=== PATIENT | female | born 1985 | race Caucasian/White ===

== ENCOUNTER 2017-09-12 11:07 | Emergency (ER) | payer MEDICARE, OTHER ==
[~2017-09-12] VITALS: Ht 175.3 cm; Wt 98.4 kg
[~2017-09-12 11:07] MED LIST: ACYC800 PO; Bactrim Ds Tab1 EACH PO; CEPH500 PO; CIPRO500 MG PO; CLON.5 PO; CODBUTACEC PO; DIAZ10; FAMO40 PO; HYDACE5 PO; IBUP600 PO; IBUP800; IBUP800 PO; Keflex500 MG PO; LEVFLO500 PO; LIDO2L MM; MULVITMINE; MULVITSO PO; NAPR500 PO; Naprosyn500 MG PO; Norco 5-325 Ta1 EACH PO; OXYACE5T PO; PENVK250 PO; PENVK500 PO; PHENY100ER PO; PRENZ; PROACE100 PO; QUET25 PO; QUET300 PO; RXPENVK250 PO; SERT25; SULTRIDS PO; TRAM50 PO; TRAZ100; TRAZ100 PO; Veetids 500500 MG PO
[2017-09-12 11:28] LABS: BASOPHILS ABSOLUTE AUTO 0.04 K/mm3 (0.00-0.23); BASOPHILS PERCENT AUTO 1 % (0-2); EOSINOPHILS ABSOLUTE AUTO 0.08 K/mm3 (0.00-0.68); EOSINOPHILS PERCENT AUTO 2 % (0-6); Hematocrit 40.6 % (33.0-51.0); Hemoglobin 12.8 g/dL (11.5-16.0); IMMATURE GRAN ABSOLUTE AUTO 0.01 K/mm3 (0.00-0.10); IMMATURE GRAN PERCENT AUTO 0 % (0-1); LYMPHOCYTES ABSOLUTE AUTO 1.34 K/mm3 (0.84-5.20); LYMPHOCYTES PERCENT AUTO 32 % (21-46); MONOCYTES ABSOLUTE AUTO 0.39 K/mm3 (0.16-1.47); MONOCYTES PERCENT AUTO 9 % (4-13); Mean Corpuscular HGB Conc 31.5 g/dL (31.5-36.5); Mean Corpuscular Volume 92 fL (80-100); Mean Platelet Volume 10.1 fL (9.1-12.4); NEUTROPHILS ABSOLUTE AUTO 2.31 K/mm3 (1.96-9.15); NEUTROPHILS PERCENT AUTO 55 % (41-73); Platelet Count 214 K/mm3 (150-400); RDW Coefficient Variation 13.9 % (11.7-14.2); RDW Standard Deviation 46.9 fL (35.1-46.3); Red Blood Cell Count 4.42 M/mm3 (3.80-5.20); White Blood Cell Count 4.17 K/mm3 (4.00-11.30)
[2017-09-12 11:55] LABS: Alanine Aminotransfer (ALT/SGP 159 U/L (12-78); Albumin, Blood 3.3 g/dL (3.4-5.0); Albumin/Globulin Ratio 0.7 (0.8-1.8); Alk Phos 46 U/L (50-136); Anion Gap 7 mmol/L (6-16); Aspartate Aminotrans (AST/SGOT 100 U/L (12-37); Bilirubin, Total 0.3 mg/dL (0.1-1.0); Blood Urea Nitrogen 21 mg/dL (8-24); Bun/Creatinine Ratio 26.2 (12.0-20.0); CO2, Blood 23 mmol/L (21-32); Calcium, Blood 8.2 mg/dL (8.5-10.1); Chloride, Blood 109 mmol/L (98-108); Globulin, Blood 4.6 g/dL (2.2-4.0); Glomerular Filtration Rate >60 (60-); Glucose, Blood 84 mg/dL (70-99); Potassium, Blood 4.9 mmol/L (3.5-5.5); Sodium, Blood 139 mmol/L (136-145); Total Protein, Blood 7.9 g/dL (6.4-8.2)
[2017-09-12 12:07] LABS: Source, Urine Clean Catch
[2017-09-12 12:12] LABS: Bilirubin, Urine Neg (Neg); Blood, Urine 1+ (Neg); Glucose Qualitative, Urine Neg (Neg); Ketones, Urine Neg (Neg); Leukocyte Esterase, Urine Neg (Neg); Nitrite, Urine Neg (Neg); Protein, Urine Neg (Neg); Specific Gravity, Urine 1.015 (1.003-1.022); Urobilinogen, Urine NORM (Normal)
[2017-09-12 12:46] LABS: Appearance, Urine Clear (Clear); Color, Urine Yellow (P-Yellow)
[2017-09-12 12:48] LABS: White Blood Cells, Urine Not Seen /hpf (0-5)
[2017-09-12 12:49] LABS: Bacteria Not Seen /hpf; Red Blood Cells, Urine 0-2 /hpf (0-2); Squamous Epithelial Cells Rare /hpf (Few)
== END 2017-09-12 13:31 | disposition home or self-care (01) ==
LOC: ER 11:07
PROVIDERS: Emergency Medicine
DX: R10.9 Unspecified abdominal pain (principal); Z86.73 Personal history of transient ischemic attack (TIA), and cerebral infarction without residual deficits; Z88.5 Allergy status to narcotic agent; Z88.8 Allergy status to other drugs, medicaments and biological substances
CPT/HCPCS: 36415; 80053; 81001; 81025; 85025; 99283

== ENCOUNTER → 2020-02-06 | Outpatient (CLI) | payer MEDICARE, OTHER | END | disposition home or self-care (01) | LOC: LAB 19:01 → LAB SHORT 19:01 | DX: L02.91 Cutaneous abscess, unspecified (principal) | CPT/HCPCS: 87070; 87075; 87077; 87147; 87186; 87205 ==

== ENCOUNTER 2020-08-16 22:24 | Inpatient (IN) | payer MEDICARE, OTHER ==
[~2020-08-16] VITALS: Ht 175.3 cm; Wt 110.0 kg
[2020-08-17 00:12] LABS: White Blood Cell Count 5.25 K/mm3 (4.00-11.30)
[2020-08-17 00:13] LABS: BASOPHILS ABSOLUTE AUTO 0.06 K/mm3 (0.00-0.23); BASOPHILS PERCENT AUTO 1 % (0-2); EOSINOPHILS ABSOLUTE AUTO 0.11 K/mm3 (0.00-0.68); EOSINOPHILS PERCENT AUTO 2 % (0-6); Hematocrit 33.4 % (33.0-51.0); Hemoglobin 10.1 g/dL (11.5-16.0); IMMATURE GRAN ABSOLUTE AUTO 0.01 K/mm3 (0.00-0.10); IMMATURE GRAN PERCENT AUTO 0 % (0-1); LYMPHOCYTES ABSOLUTE AUTO 1.41 K/mm3 (0.84-5.20); LYMPHOCYTES PERCENT AUTO 27 % (21-46); MONOCYTES ABSOLUTE AUTO 0.58 K/mm3 (0.16-1.47); MONOCYTES PERCENT AUTO 11 % (4-13); Mean Corpuscular HGB 23.9 pg (26.0-34.0); Mean Corpuscular HGB Conc 30.2 g/dL (31.5-36.5); Mean Corpuscular Volume 79 fL (80-100); Mean Platelet Volume 9.3 fL (9.1-12.4); NEUTROPHILS ABSOLUTE AUTO 3.08 K/mm3 (1.96-9.15); NEUTROPHILS PERCENT AUTO 59 % (41-73); Platelet Count 329 K/mm3 (150-400); RDW Coefficient Variation 14.2 % (11.7-14.2); RDW Standard Deviation 40.7 fL (35.1-46.3); Red Blood Cell Count 4.23 M/mm3 (3.80-5.20)
[2020-08-17 00:31] LABS: Alanine Aminotransfer (ALT/SGP 56 U/L (12-78); Albumin, Blood 3.1 g/dL (3.4-5.0); Albumin/Globulin Ratio 0.7 (0.8-1.8); Alk Phos 68 U/L (50-136); Anion Gap 4 mmol/L (6-16); Aspartate Aminotrans (AST/SGOT 38 U/L (12-37); Bilirubin, Total 0.5 mg/dL (0.1-1.0); Blood Urea Nitrogen 13 mg/dL (8-24); CO2, Blood 28 mmol/L (21-32); Calcium, Blood 8.3 mg/dL (8.5-10.1); Chloride, Blood 107 mmol/L (98-108); Globulin, Blood 4.7 g/dL (2.2-4.0); Glomerular Filtration Rate >60 (60-); Glucose, Blood 115 mg/dL (70-99); Sodium, Blood 139 mmol/L (136-145); Total Protein, Blood 7.8 g/dL (6.4-8.2)
--- NOTE | 2020-08-17 03:33 | NUR ---
0325 REPORT RECEIVED FROM CHUY LINDQUIST, VIA ER; PT ADMITTED TO ROOM 343 PER CART FROM ER; PT SLIDE FROM CART TO BED PER SELF; PTS RLE RED AND SWOLLEN, WARM TO TOUCH; C/O NUMBNESS AND TINGLING TO LEG.
[2020-08-17 05:15] LABS: BASOPHILS ABSOLUTE AUTO 0.06 K/mm3 (0.00-0.23); BASOPHILS PERCENT AUTO 1 % (0-2); EOSINOPHILS ABSOLUTE AUTO 0.12 K/mm3 (0.00-0.68); EOSINOPHILS PERCENT AUTO 3 % (0-6); Hematocrit 33.6 % (33.0-51.0); Hemoglobin 10.1 g/dL (11.5-16.0); IMMATURE GRAN ABSOLUTE AUTO 0.01 K/mm3 (0.00-0.10); IMMATURE GRAN PERCENT AUTO 0 % (0-1); LYMPHOCYTES ABSOLUTE AUTO 1.45 K/mm3 (0.84-5.20); LYMPHOCYTES PERCENT AUTO 32 % (21-46); MONOCYTES ABSOLUTE AUTO 0.58 K/mm3 (0.16-1.47); MONOCYTES PERCENT AUTO 13 % (4-13); Mean Corpuscular HGB 23.8 pg (26.0-34.0); Mean Corpuscular HGB Conc 30.1 g/dL (31.5-36.5); Mean Corpuscular Volume 79 fL (80-100); NEUTROPHILS ABSOLUTE AUTO 2.32 K/mm3 (1.96-9.15); NEUTROPHILS PERCENT AUTO 51 % (41-73); Platelet Count 312 K/mm3 (150-400); RDW Coefficient Variation 14.3 % (11.7-14.2); RDW Standard Deviation 40.9 fL (35.1-46.3); Red Blood Cell Count 4.24 M/mm3 (3.80-5.20); White Blood Cell Count 4.54 K/mm3 (4.00-11.30)
[2020-08-17 05:42] LABS: Alanine Aminotransfer (ALT/SGP 52 U/L (12-78); Albumin, Blood 2.9 g/dL (3.4-5.0); Albumin/Globulin Ratio 0.6 (0.8-1.8); Alk Phos 64 U/L (50-136); Anion Gap 5 mmol/L (6-16); Aspartate Aminotrans (AST/SGOT 35 U/L (12-37); Bilirubin, Total 1.2 mg/dL (0.1-1.0); Blood Urea Nitrogen 13 mg/dL (8-24); Bun/Creatinine Ratio 14.2 (12.0-20.0); CO2, Blood 27 mmol/L (21-32); Chloride, Blood 107 mmol/L (98-108); Creatinine, Blood 0.92 mg/dL (0.40-1.00); Globulin, Blood 4.5 g/dL (2.2-4.0); Glomerular Filtration Rate >60 (60-); Glucose, Blood 111 mg/dL (70-99); Potassium, Blood 3.9 mmol/L (3.5-5.5); Sodium, Blood 139 mmol/L (136-145); Total Protein, Blood 7.4 g/dL (6.4-8.2)
--- NOTE | 2020-08-17 07:36 | NUR ---
SHIFT SUMMARY: 35 Y/O OBESE FEMALE RESTED COMFORTABLY ALL SHIFT; PT VERY RELUCTANT TO TAKE NARCOTICS DUE PAST HX SUBSTANCE ABUSEP; PT DID CONSENT TO TAKING FENTANYL 25MG IVP X 1 THIS AM FOR PAIN RATED 9/10 WITH RELIEF FELT; PTS RLE ELEVATED TWO PILLOWS WITH LOWER CALF/ANKLE RED AND WARM TO TOUCH; AFEBRILE; BED LOW POSITION WITH CALL LIGHT AT SIDE.
--- NOTE | 2020-08-17 11:37 | NUR ---
Patient is sitting up in bed and eating breakfast. Patient tells me that she is extremely tired and uncomfortable. She says her pain is managed but her leg still graham. She talks being in a rough patch, about her Restorationist lopez and that she will be having an MRI done this day. She discusses the emotional struggle. I normalize patient's experience and provide emotional support and prayer. Patient responds well and shows signs of increased peace. I will continue to remain available to patient and family.
--- NOTE | 2020-08-17 19:13 | NUR ---
PT IS RESTING IN BED AFTER DINNER AND PM MEDICATION ADMIN. PT IV LINE IS RUNNING AND WNL. PT CONT. TO C/O 78 PAIN IN RLE AND HAS BEEN TREATED PER EMAR. PT IS STAND BAY ASSIST, A/O X3, BED IN LOW POSITION AND CALL LIGHT WITHIN REACH. CONTACTED PHARMACY OF RECORD AND WAS TOLD THAT PT PICKED UP A PRESCRIPTION OF OXYCODONE 5MG, Q4H, PRN FOR PAIN, ON 08/16. PT STATES SHE TOOK A COUPLE AND IT DID NOT WORK, SHE ENDED UP HERE THE NEXT DAY AND SHE IS NOT TAKING THEM CURRENTLY.
[2020-08-17 22:16] LABS: Vancomycin, Trough 24.6 ug/mL (5.0-10.0)
--- NOTE | 2020-08-18 02:02 | NUR ---
08/17/201934 PT RESTING COMFORTABLY IN BED WITH RLE ELEVATED TWO PILLOWS; PTS RLE RED AND WARM TO TOUCH; DENIES NEED FOR PAIN MEDS.
--- NOTE | 2020-08-18 04:43 | NUR ---
SHIFT SUMMARY: 35 Y/O OBESE FEMALE RESTED COMFORTABLY ALL SHIFT; PT DENIES NEED FOR PAIN MEDS; PT RLE HAS +2 EDEMA WITH REDNESS AND WARMTH NOTED; PT ABLE AMBULATE BATHROOM AND BACK TO RESTROOM WITH LIMP NOTED WITH AMBULATION; ALERT AND ORIENTED X 4; PT KEEP RLE ELEVATED ON TWO PILLOWS; BED LOW POSITION WITH CALL LIGHT AT SIDE.
[2020-08-18 05:37] LABS: BASOPHILS ABSOLUTE AUTO 0.05 K/mm3 (0.00-0.23); BASOPHILS PERCENT AUTO 1 % (0-2); EOSINOPHILS ABSOLUTE AUTO 0.11 K/mm3 (0.00-0.68); EOSINOPHILS PERCENT AUTO 3 % (0-6); Hematocrit 35.6 % (33.0-51.0); IMMATURE GRAN ABSOLUTE AUTO 0.01 K/mm3 (0.00-0.10); IMMATURE GRAN PERCENT AUTO 0 % (0-1); LYMPHOCYTES PERCENT AUTO 30 % (21-46); MONOCYTES ABSOLUTE AUTO 0.37 K/mm3 (0.16-1.47); MONOCYTES PERCENT AUTO 9 % (4-13); Mean Corpuscular HGB 24.3 pg (26.0-34.0); Mean Corpuscular HGB Conc 30.9 g/dL (31.5-36.5); Mean Corpuscular Volume 79 fL (80-100); Mean Platelet Volume 9.3 fL (9.1-12.4); NEUTROPHILS ABSOLUTE AUTO 2.29 K/mm3 (1.96-9.15); NEUTROPHILS PERCENT AUTO 57 % (41-73); Platelet Count 329 K/mm3 (150-400); RDW Coefficient Variation 14.2 % (11.7-14.2); RDW Standard Deviation 39.9 fL (35.1-46.3); Red Blood Cell Count 4.53 M/mm3 (3.80-5.20); White Blood Cell Count 4.03 K/mm3 (4.00-11.30)
[2020-08-18 06:02] LABS: Albumin, Blood 2.9 g/dL (3.4-5.0); Anion Gap 4 mmol/L (6-16); Blood Urea Nitrogen 10 mg/dL (8-24); Bun/Creatinine Ratio 11.2 (12.0-20.0); CO2, Blood 27 mmol/L (21-32); Calcium, Blood 8.4 mg/dL (8.5-10.1); Chloride, Blood 107 mmol/L (98-108); Glomerular Filtration Rate >60 (60-); Glucose, Blood 93 mg/dL (70-99); Phosphorus, Blood 4.1 mg/dL (2.5-4.9); Potassium, Blood 4.1 mmol/L (3.5-5.5); Sodium, Blood 138 mmol/L (136-145)
[2020-08-18] MEDS ORDERED: ACET325 PO (12:20)
[2020-08-18] MEDS ORDERED: IBUP400 PO (12:20)
[2020-08-18] MEDS ORDERED: LACT PO (12:21)
[2020-08-18] MEDS ORDERED: SULTRIDS PO (12:21)
--- NOTE | 2020-08-18 15:50 | NUR ---
PT WAS DISCHARGED ALERT AND ORIENTED X4, BELONGINGS AT SIDE AND MAKING NO COMPLAINTS OF PAIN AT THIS TIME. PT WAS EDUCATED ON NEW MEDICATIONS NEEDED AND FOLLOW UP APPOINTMENTS NEEDED. PT WAS ABLE TO VERBALIZE UNDERSTANDING.
== END 2020-08-18 14:39 | disposition home or self-care (01) | DRG 603 ==
LOC: ER 22:24 → MEDS 08-17 02:07 → EDBEDREQ 08-17 02:57 → MEDS 08-17 03:24
PROVIDERS: Emergency Medicine; Internal Medicine; ADMIT Internal Medicine
DX: L03.115 Cellulitis of right lower limb (principal); G40.909 Epilepsy, unspecified, not intractable, without status epilepticus; Z86.73 Personal history of transient ischemic attack (TIA), and cerebral infarction without residual deficits; Z86.14 Personal history of Methicillin resistant Staphylococcus aureus infection; Z86.718 Personal history of other venous thrombosis and embolism
CPT/HCPCS: 36415; 73723; 80048; 80053; 80061; 80069; 80202; 83605; 83880; 84550; 85025; 86592; 87040; 87389; 87491; 87591; 93971; 96365; 96366; 96375; 99284-25; A9579; J0690; J1650; J1885; J3010; J3370; J7030; J7050

== ENCOUNTER 2021-04-14 10:01 | Emergency (ER) | payer MEDICARE, OTHER ==
[~2021-04-14] VITALS: Ht 172.7 cm; Wt 104.3 kg
[~2021-04-14 10:01] MED LIST changes: +ACET325 PO; +IBUP400 PO; +LACT PO
[2021-04-14] MEDS ORDERED: DEXT30SU PO (10:31)
== END 2021-04-14 11:04 | disposition home or self-care (01) ==
LOC: ER 10:01
DX: U07.1 COVID-19 (principal); Z88.5 Allergy status to narcotic agent; Z88.8 Allergy status to other drugs, medicaments and biological substances
CPT/HCPCS: 99284

== ENCOUNTER 2021-12-24 17:44 | Emergency (ER) | payer MEDICARE, OTHER ==
[~2021-12-24] VITALS: Ht 172.7 cm; Wt 104.3 kg
[~2021-12-24 17:44] MED LIST changes: +DEXT30SU PO
[2021-12-24 19:50] LABS: BASOPHILS ABSOLUTE AUTO 0.05 K/mm3 (0.00-0.23); BASOPHILS PERCENT AUTO 1 % (0-2); EOSINOPHILS ABSOLUTE AUTO 0.13 K/mm3 (0.00-0.68); EOSINOPHILS PERCENT AUTO 3 % (0-6); Hematocrit 28.9 % (33.0-51.0); IMMATURE GRAN PERCENT AUTO 0 % (0-1); LYMPHOCYTES ABSOLUTE AUTO 1.11 K/mm3 (0.84-5.20); LYMPHOCYTES PERCENT AUTO 28 % (21-46); MONOCYTES ABSOLUTE AUTO 0.51 K/mm3 (0.16-1.47); MONOCYTES PERCENT AUTO 13 % (4-13); Mean Corpuscular HGB 19.9 pg (26.0-34.0); Mean Corpuscular HGB Conc 27.7 g/dL (31.5-36.5); Mean Corpuscular Volume 72 fL (80-100); Mean Platelet Volume 9.9 fL (9.1-12.4); NEUTROPHILS ABSOLUTE AUTO 2.12 K/mm3 (1.96-9.15); NEUTROPHILS PERCENT AUTO 54 % (41-73); Platelet Count 234 K/mm3 (150-400); RDW Coefficient Variation 19.3 % (11.7-14.2); RDW Standard Deviation 49.3 fL (35.1-46.3); Red Blood Cell Count 4.03 M/mm3 (3.80-5.20); White Blood Cell Count 3.92 K/mm3 (4.00-11.30)
[2021-12-24 20:10] LABS: Albumin/Globulin Ratio 0.7 (0.8-1.8); Bilirubin, Total 0.4 mg/dL (0.1-1.0); Bun/Creatinine Ratio 11.9 (12.0-20.0); Calcium, Blood 8.3 mg/dL (8.5-10.1); Creatinine, Blood 0.92 mg/dL (0.40-1.00); Globulin, Blood 4.3 g/dL (2.2-4.0); Potassium, Blood 4.4 mmol/L (3.5-5.5); Total Protein, Blood 7.3 g/dL (6.4-8.2)
[2021-12-25] MEDS ORDERED: Ferrous Sulfat325 MG PO (00:36)
== END 2021-12-25 00:40 | disposition home or self-care (01) ==
LOC: ER 17:44
PROVIDERS: Physician Assistant
DX: D25.9 Leiomyoma of uterus, unspecified (principal); R60.0 Localized edema; D64.9 Anemia, unspecified; Z88.5 Allergy status to narcotic agent
CPT/HCPCS: 71045; 71260; 74177; 80053; 83615; 83880; 84484; 85025; 85379; 93005; 93010; 99285-25; A9270; Q9967

== ENCOUNTER 2023-01-29 06:11 | Inpatient (IN) | payer MEDICARE, OTHER ==
[2023-01-29] VITALS (19 sets, daily range): BP systolic 115–157; BP diastolic 68–95
[~2023-01-29] VITALS: Ht 175.3 cm; Wt 102.3 kg
[~2023-01-29 06:11] MED LIST changes: +Ferrous Sulfat325 MG PO
--- NOTE | 2023-01-29 07:31 | NUR ---
Ambulatory in Day Surgery History, Chart, Medications and Allergies reviewed before start of procedure. Pre-Op teaching done. Pt verbalizes understanding.
[2023-01-29 09:20] LABS: Source, Urine Foley catheter
[2023-01-29 09:25] LABS: Appearance, Urine Clear (Clear); Bilirubin, Urine Neg (Neg); Blood, Urine Neg (Neg); Color, Urine Yellow (P-Yellow); Glucose Qualitative, Urine Neg (Neg); Ketones, Urine Neg (Neg); Leukocyte Esterase, Urine Neg (Neg); Nitrite, Urine Neg (Neg); Protein, Urine Neg (Neg); Urobilinogen, Urine 1+ (Normal)
[2023-01-29 09:42] LABS: U Amphetamine Screen DETECTED; U Barbituate Screen Not Detected; U Benzodiazapine Screen DETECTED; U Buprenorphine Screen Not Detected; U Cannabinoids Screen DETECTED; U Cocaine Screen Not Detected; U Methadone Screen Not Detected; U Methamphetamine Screen DETECTED; U Opiates Screen Not Detected; U Oxycodone Screen Not Detected; U Phencyclidine Screen Not Detected; U Propoxyphene Screen Not Detected
--- NOTE | 2023-01-29 10:09 | NUR ---
01/29/23 Meredith White PT ARRIVED TO ROOM AND IV WAS INFILTRATED TO RIGHT UPPER ARM. DAY SURGERY ATTEMPTED TO PLACE ANOTHER IV WITH ULTRASOUND TO LEFT UPPER ARM WITH NO SUCCESS. ICU KEYMODULE ASSEMBLY MACHINE TENDER PLACED A POWER GLIDE TO LEFT UPPER ARM. PT WAS VERY SOMMULENT WHEN THIS RN VISITED WITH HER IN PRE -OP. SHE WAS RESTING WITH EYES CLOSED, BUT WOULD OPEN THEM TO VERBAL STIMULI AND TOUCH. SHE QUICKLY WOULD CLOSE HER EYES WITH OUT ANY STIMULI. UPON ARRIVAL TO OR SHE WAS ABLE TO MOVE OVER TO OR TABLE WITH OUT ANY ISSUES. SHE CON'T TO BECOME MORE SOMMULANT T/O HER TIME FROM ARRIVAL TO OR TO TIME OF SEDATION. SHE WAS ALWAYS RESPONSIVE TO REPEATED VERBAL STIMULI AND PHYSICAL STIMULI. SHE DID PROGRESSIVLY BECOME MORE UNRESPONSIVE TO VERBAL AND PHYSICAL STIMULI. SEE ANESTHESIA RECORD FOR VITALS. THEY CON'T TO BE STABLE T/O THIS TIME. UA AND TOX SCREEN WAS SENT PER DR ZHENG. SHE WAS POSITIVE FOR MULTIPLE DRUGS.
[2023-01-29 13:21] LABS: BASOPHILS ABSOLUTE AUTO 0.03 K/mm3 (0.00-0.23); BASOPHILS PERCENT AUTO 0 % (0-2); EOSINOPHILS ABSOLUTE AUTO 0.01 K/mm3 (0.00-0.68); EOSINOPHILS PERCENT AUTO 0 % (0-6); Hematocrit 32.3 % (33.0-51.0); Hemoglobin 9.5 g/dL (11.5-16.0); IMMATURE GRAN ABSOLUTE AUTO 0.03 K/mm3 (0.00-0.10); IMMATURE GRAN PERCENT AUTO 0 % (0-1); LYMPHOCYTES ABSOLUTE AUTO 0.75 K/mm3 (0.84-5.20); LYMPHOCYTES PERCENT AUTO 7 % (21-46); MONOCYTES ABSOLUTE AUTO 0.22 K/mm3 (0.16-1.47); MONOCYTES PERCENT AUTO 2 % (4-13); Mean Corpuscular HGB Conc 29.4 g/dL (31.5-36.5); Mean Corpuscular Volume 75 fL (80-100); Mean Platelet Volume 9.7 fL (9.1-12.4); NEUTROPHILS ABSOLUTE AUTO 10.49 K/mm3 (1.96-9.15); NEUTROPHILS PERCENT AUTO 91 % (41-73); Platelet Count 221 K/mm3 (150-400); RDW Coefficient Variation 15.9 % (11.7-14.2); RDW Standard Deviation 42.8 fL (35.1-46.3); Red Blood Cell Count 4.31 M/mm3 (3.80-5.20); White Blood Cell Count 11.53 K/mm3 (4.00-11.30)
--- NOTE | 2023-01-29 18:53 | NUR ---
AT APROX 1342 PT APPEARD PALE, COOL, DIAPHORTIC. PT LETHARGIC, RESPONDED TO PAINFUL STIMULI BUT FALLS BACK TO SLEEP RAPIDLY. PT HAD ONLY HAD 10 MCG OF FENT PRIOR TO THIS VIA FORGESMITH. HR IN 40'S, ORAL TEMP 91. WHEN PT ARM WAS LIFTED AND DROPPED THERE WAS NO MUSCLE RESPONSE. REQUESTED MANAGER CORPORATE MARKETING COME TO EVAL. RN TO ROOM. AT 1402 PT GIVEN 0.4 NARCAN WITH NO RESPONSE. EKG DONE, SINUS ELOISE. PT ABLE TO WAKE TO ANSWER A FEW QUESTIONS PRIOR TO FALLING BACK ASLEEP. AT THAT TIME MD WAS NOTIFIED. OK TO START TELE, CONTINUE WITH MONITORING VS AND CONTINUOUS BIOX, NO NARCOTICS UNTIL PT WAKES. AT THIS TIME 1902 PT IS A/O, ANSWERS QUESTIONS APPROPRIATLY. HR 78 ALL OTHER VS WNL.
[2023-01-30 03:38] VITALS: BP 147/93
--- NOTE | 2023-01-30 04:43 | NUR ---
SHIFT SUMMARY NO ACUTE EVENTS THIS SHIFT, PATIENT IS AOX4, DROWSY, BUT AROUSABLE. MEDIPORE DRESSING TO ABD IS C/D/I. MIROSLAVA PAD WITH SCANT BLOOD. PATIENT ABLE TO STAND AT BEDSIDE AND DANGLE AT EOB.COMPLAINT INVESTIGATIONS OFFICER AVAILABLE FOR PAIN MANAGEMENT AND TOLERATING. MEDICATED WITH TORADOL PER EMAR. AGOSTO IS PATENT AND DRAINING TO GRAVITY, CLEAR YELLOW URINE. PATIENT TOLERATING PO INTAKE, DENIES N/V. DENIES PASSING GAS. IVF RUNNING. SCD'S IN PLACE. AGOSTO TO BE PULLED THIS AM. RESTING T/O SHIFT, PULSE OX IN PLACE.TELE IN PLACE,NSR IN THE 70'S PER REFINERY OPERATOR GAS PLANT. VSS.CALL LIGHT IS IN REACH.
[2023-01-30 04:45] LABS: BASOPHILS ABSOLUTE AUTO 0.02 K/mm3 (0.00-0.23); BASOPHILS PERCENT AUTO 0 % (0-2); EOSINOPHILS ABSOLUTE AUTO 0.01 K/mm3 (0.00-0.68); EOSINOPHILS PERCENT AUTO 0 % (0-6); Hematocrit 27.3 % (33.0-51.0); Hemoglobin 8.1 g/dL (11.5-16.0); IMMATURE GRAN ABSOLUTE AUTO 0.01 K/mm3 (0.00-0.10); IMMATURE GRAN PERCENT AUTO 0 % (0-1); LYMPHOCYTES ABSOLUTE AUTO 1.13 K/mm3 (0.84-5.20); LYMPHOCYTES PERCENT AUTO 14 % (21-46); MONOCYTES ABSOLUTE AUTO 0.63 K/mm3 (0.16-1.47); MONOCYTES PERCENT AUTO 8 % (4-13); Mean Corpuscular HGB Conc 29.7 g/dL (31.5-36.5); Mean Corpuscular Volume 74 fL (80-100); Mean Platelet Volume 10.1 fL (9.1-12.4); NEUTROPHILS ABSOLUTE AUTO 6.07 K/mm3 (1.96-9.15); NEUTROPHILS PERCENT AUTO 77 % (41-73); Platelet Count 215 K/mm3 (150-400); RDW Coefficient Variation 15.5 % (11.7-14.2); RDW Standard Deviation 40.9 fL (35.1-46.3); Red Blood Cell Count 3.69 M/mm3 (3.80-5.20); White Blood Cell Count 7.87 K/mm3 (4.00-11.30)
[2023-01-30 07:10] VITALS: BP 150/99
[2023-01-30 14:32] VITALS: BP 131/76
--- NOTE | 2023-01-30 15:43 | NUR ---
SHEET HEATER HELPER DISCONNECTED FROM PT, PO MEDS GIVEN.
--- NOTE | 2023-01-30 18:10 | NUR ---
SHIFT SUMMARY PT A&OX4, VSS/RA, ALECIA PO, VOIDING, AMB INDEPENDENTLY TO BRP, PAIN MANAGED WITH PO PAIN MEDS, IV SL. POD1 TOTAL ABD HYSTER, TRANSVERSE D/I. WILL REPORT TO ONCOMING NOC RN.
[2023-01-30 20:03] VITALS: BP 149/80
[2023-01-31 03:32] VITALS: BP 129/84
--- NOTE | 2023-01-31 04:24 | NUR ---
SHIFT SUMMARY NO ACUTE CHANGES TO REPORT OVERNIGHT, PT HAS RESTED MOST OF THE NIGHT. INDEPENDENT IN THE ROOM. PT HAS BEEN UP AND AMBULATING TO THE BATHROOM, VOIDING WITHOUT DIFFICULTY, MINIMAL VAGINAL BLEEDING. INCISION SITE WNL, DRESSING C/D/I. PT MEDICATED X1 FOR PAIN AND GAS. PT ENCOURAGED TO AMBULATE TO HELP WITH GAS PAIN. VITALS STABLE. BED IN LOWEST POSITION, CALL LIGHT WITHIN EACH.
[2023-01-31 07:25] VITALS: BP 148/90
[2023-01-31] MEDS ORDERED: Percocet 5-3251 EACH PO (13:09)
[2023-01-31] MEDS ORDERED: MOTRIN IB200 MG PO (13:10)
--- NOTE | 2023-01-31 15:07 | NUR ---
DISCHARGE SUMMARY PT A&OX4, VSS/RA, ALECIA PO, VOIDING, AMB IND IN ROOM AND HALLWAY, DRESSED SELF, PAIN MANAGED, EXT DWELL DC'D. DC INS PROVIDED. PT REP UNDERSTANDING THOSE INSTRUCTIONS INC OK TO SHOWER, WEAR MEDIPORE DRESSING FOR COMFORT, CALL DR IF S/SX OF INFECTION OR PROBLEMS W/INCISION. LEFT FLOOR WITH FRIEND/SLEEPING CAR CONDUCTOR TO GO HOME WITH ALL PERSONAL POSSESSIONS INCLUDING DC PACKET, 1 NARC SCRIPT AND EXTRA DRESSINGS.
== END 2023-01-31 13:42 | disposition home or self-care (01) | DRG 742 ==
LOC: SURS 06:11 → PRE IP 08:00 → SURS 11:56
PROVIDERS: Student in an Organized Health Care Education/Training Program; ADMIT Obstetrics & Gynecology
PROC: 0UT90ZZ Resection of Uterus, Open Approach (ICD-10-PCS; principal; 2023-01-29 08:00)
DX: D25.9 Leiomyoma of uterus, unspecified (principal); F13.139 Sedative, hypnotic or anxiolytic abuse with withdrawal, unspecified; F15.13 Other stimulant abuse with withdrawal; N92.4 Excessive bleeding in the premenopausal period; D64.9 Anemia, unspecified; N85.2 Hypertrophy of uterus; F12.13 Cannabis abuse with withdrawal; B19.20 Unspecified viral hepatitis C without hepatic coma; Z98.890 Other specified postprocedural states; Z79.899 Other long term (current) drug therapy; Z90.49 Acquired absence of other specified parts of digestive tract; Z88.8 Allergy status to other drugs, medicaments and biological substances
CPT/HCPCS: 36415; 81003; 82947; 85025; 86850; 86900; 86901; 86923; 88307; 93005; 93010; 94762; A9270; C1751; J0690; J1100; J1170; J1885; J2310; J2405; J2704; J3010; J7120

== ENCOUNTER 2023-02-25 08:32 | Emergency (ER) | payer MEDICARE, OTHER ==
[~2023-02-25] VITALS: Ht 175.3 cm; Wt 102.5 kg
[~2023-02-25 08:32] MED LIST changes: +MOTRIN IB200 MG PO; +Percocet 5-3251 EACH PO
[2023-02-25 09:30] VITALS: BP 161/136
[2023-02-25] MEDS ORDERED: NARCAN4 M1 (10:39)
== END 2023-02-25 11:06 | disposition home or self-care (01) ==
LOC: ER 08:32
DX: S20.219A Contusion of unspecified front wall of thorax, initial encounter (principal); T40.411A Poisoning by fentanyl or fentanyl analogs, accidental (unintentional), initial encounter; R51.9 Headache, unspecified; R06.83 Snoring; G40.909 Epilepsy, unspecified, not intractable, without status epilepticus; Z86.73 Personal history of transient ischemic attack (TIA), and cerebral infarction without residual deficits; Z86.718 Personal history of other venous thrombosis and embolism; Z88.8 Allergy status to other drugs, medicaments and biological substances; Z88.5 Allergy status to narcotic agent; X58.XXXA Exposure to other specified factors, initial encounter
CPT/HCPCS: 71046; 93005; 93010; 96372; 99285-25; A9270; J1885

== ENCOUNTER 2024-01-05 10:20 | Day surgery (SDC) | payer MEDICARE, OTHER ==
[~2024-01-05] VITALS: Ht 172.7 cm; Wt 101.9 kg
[~2024-01-05 10:20] MED LIST changes: +Lactated Ringer's 1,000 ML IV ONE; +NARCAN4 M1; +propofoL 50 ML IV ONE
[2024-01-05] MEDS ORDERED: MIRALAX17 GM (11:04)
[2024-01-05] MEDS ORDERED: Lidocaine HCl/Pf 1% 5 ML VIAL ONE (12:09)
[2024-01-05] MEDS ORDERED: Lactated Ringer's 1,000 ML IV ONE (12:28)
[2024-01-05] MEDS ORDERED: propofoL 0 ML IV ONE (12:40)
[2024-01-05] MEDS ORDERED: Midazolam HCL 1 MG/ML 5MLVIAL ONE (12:40)
--- NOTE | 2024-01-05 14:15 | NUR ---
01/05/24 1415 [place] PT DIASTOLIC BP WAS OVER 100 PRIOR TO DC DESPITE CHANGING ARMS/SIZES OF CUFFS. PT DENIED ANY PAIN. PT STATES THAT HER BP IS USUALLY HIGH BUT HADNT BEEN TAKING BP MEDS LIKE HER PCP HAD RECOMMENDE. PT WAS EDUCATED ABOUT HTN AND THE NEED TO F/U W/ HER PCP. SENIOR DATASTAGE DEVELOPER DR MOHR ASSESSED PT AND TOLD HER THAT WE WOULD BE SENDING A NOTE TO HER PCP THU GOODEN ABOUT NEED FOR HTN CHECK-UP. PT AGREED TO F/U WITH PCP VERBALLY ACKNOWLEDGING THE IMPORTANCE NOW.
[2024-01-05 14:21] VITALS: BP 178/109
--- NOTE | 2024-01-06 14:27 | NUR ---
01/06/24 1427 Lilly Lora LATE ENTRY. PT SLOW TO WAKE UP IN ENDO AND TRANSFERRED TO SDU FOR EXTENDED RECOVERY TIME. SEE STEPDOWN NURSING NOTE FOR FURTHER INFO.
[2024-01-10] MEDS ORDERED: BUPROPION XL150 M1 PO (22:53)
[2024-01-13] MEDS ORDERED: SULFAMETHOXAZO1 EAC1 PO (16:02)
== END 2024-01-05 14:05 | disposition home or self-care (01) ==
LOC: ORSCSDS 10:20
PROVIDERS: Internal Medicine Gastroenterology
PROC: 0DJD8ZZ Inspection of Lower Intestinal Tract, Via Natural or Artificial Opening Endoscopic (ICD-10-PCS; principal; 2024-01-05 11:30)
PROC: 0DJ08ZZ Inspection of Upper Intestinal Tract, Via Natural or Artificial Opening Endoscopic (ICD-10-PCS; principal; 2024-01-05 11:30)
DX: R13.10 Dysphagia, unspecified (principal); K59.00 Constipation, unspecified; R10.84 Generalized abdominal pain; B19.20 Unspecified viral hepatitis C without hepatic coma; Z68.34 Body mass index [BMI] 34.0-34.9, adult; F41.8 Other specified anxiety disorders; F31.9 Bipolar disorder, unspecified; F20.9 Schizophrenia, unspecified; G40.909 Epilepsy, unspecified, not intractable, without status epilepticus
CPT/HCPCS: J2001; J2250; J2704; J7120

== ENCOUNTER → 2024-05-11 | Outpatient (CLI) | payer MEDICARE, OTHER ==
[~2024-05-11] MED LIST changes: +BUPROPION XL150 M1 PO; -Lactated Ringer's 1,000 ML IV ONE; +MAVYRET 100-401 EAC1; +MIRALAX17 GM; +SULFAMETHOXAZO1 EAC1 PO; -propofoL 50 ML IV ONE
== END | disposition home or self-care (01) ==
LOC: LAB 15:22 → LAB SHORT 15:22
DX: R10.9 Unspecified abdominal pain (principal)
CPT/HCPCS: 87086

== ENCOUNTER 2024-05-21 17:17 | Emergency (ER) | payer MEDICARE, OTHER ==
[~2024-05-21] VITALS: Ht 172.7 cm; Wt 108.9 kg
[2024-05-21 17:20] VITALS: BP 164/107
[2024-05-21] MEDS ORDERED: Cephalexin Monohydrate 500 MG Cap PO ONE (18:55)
[2024-05-21] MEDS ORDERED: CEPH500 PO (18:56)
== END 2024-05-21 19:08 | disposition home or self-care (01) ==
LOC: ER 17:17
DX: L03.115 Cellulitis of right lower limb (principal); G43.909 Migraine, unspecified, not intractable, without status migrainosus; Z86.718 Personal history of other venous thrombosis and embolism; Z86.73 Personal history of transient ischemic attack (TIA), and cerebral infarction without residual deficits; Z88.5 Allergy status to narcotic agent; Z88.8 Allergy status to other drugs, medicaments and biological substances; Z79.899 Other long term (current) drug therapy
CPT/HCPCS: 93971; 99283-25; A9270

== ENCOUNTER → 2024-08-04 | Outpatient (CLI) | payer MEDICARE, OTHER ==
[2024-08-04 16:37] LABS: BASOPHILS ABSOLUTE AUTO 0.06 K/mm3 (0.00-0.23); BASOPHILS PERCENT AUTO 1 % (0-2); EOSINOPHILS ABSOLUTE AUTO 0.04 K/mm3 (0.00-0.68); EOSINOPHILS PERCENT AUTO 1 % (0-6); Hematocrit 35.8 % (33.0-51.0); Hemoglobin 11.1 g/dL (11.5-16.0); IMMATURE GRAN ABSOLUTE AUTO 0.01 K/mm3 (0.00-0.10); IMMATURE GRAN PERCENT AUTO 0 % (0-1); LYMPHOCYTES PERCENT AUTO 22 % (21-46); MONOCYTES ABSOLUTE AUTO 0.42 K/mm3 (0.16-1.47); MONOCYTES PERCENT AUTO 8 % (4-13); Mean Corpuscular HGB 23.6 pg (26.0-34.0); Mean Corpuscular Volume 76 fL (80-100); Mean Platelet Volume 9.9 fL (9.1-12.4); NEUTROPHILS ABSOLUTE AUTO 3.64 K/mm3 (1.96-9.15); NEUTROPHILS PERCENT AUTO 68 % (41-73); Platelet Count 255 K/mm3 (150-400); RDW Coefficient Variation 14.9 % (11.7-14.2); RDW Standard Deviation 40.5 fL (35.1-46.3); White Blood Cell Count 5.37 K/mm3 (4.00-11.30)
[2024-08-04 21:24] LABS: Alanine Aminotransfer (ALT/SGP 21 U/L (12-78); Albumin, Blood 3.5 g/dL (3.4-5.0); Albumin/Globulin Ratio 0.8 (0.8-1.8); Alk Phos 57 U/L (50-136); Anion Gap 13 mmol/L (3-11); Aspartate Aminotrans (AST/SGOT 19 U/L (12-37); Bilirubin, Total 0.4 mg/dL (0.1-1.0); Blood Urea Nitrogen 19 mg/dL (8-24); Bun/Creatinine Ratio 21.1 (12.0-20.0); CHOL/HDL RATIO 1.9; CO2, Blood 19 mmol/L (21-32); Calcium, Blood 8.3 mg/dL (8.5-10.1); Chloride, Blood 110 mmol/L (98-108); Cholesterol 161 mg/dL (50-200); Globulin, Blood 4.2 g/dL (2.2-4.0); Glomerular Filtration Rate 82 (60-); Glucose, Blood 74 mg/dL (70-99); HDL Cholesterol 84 mg/dL (>39); LDL/HDL RATIO 0.7; Low Density Lipoprotein Chol 60 mg/dL (0-110); Sodium, Blood 138 mmol/L (136-145); Total Protein, Blood 7.7 g/dL (6.4-8.2); Triglycerides 85 mg/dL (30-160); Very Low Density Lipoprot Chol 17 mg/dL (6-32)
[2024-08-06 09:58] LABS: HCV QNT BY NAAT (IU/ML) Not Detected; HCV QNT BY NAAT (LOG IU/ML) Not Detected; HCV QNT BY NAAT INTERP Not Detected (Not Detected)
== END ==
LOC: LAB SHORT 15:32 → LAB 15:32
PROVIDERS: Physician Assistant
DX: B18.2 Chronic viral hepatitis C (principal); Z79.899 Other long term (current) drug therapy
CPT/HCPCS: 80053; 80061; 82306; 83036; 84443; 85025; 87522

== ENCOUNTER 2024-10-25 13:22 | Emergency (ER) | payer MEDICARE, OTHER ==
[~2024-10-25] VITALS: Ht 172.7 cm; Wt 108.9 kg
[2024-10-25 13:39] VITALS: BP 162/112
[2024-10-25 14:23] LABS: Albumin, Blood 3.2 g/dL (3.4-5.0); Albumin/Globulin Ratio 0.9 (0.8-1.8); Bilirubin, Total 0.3 mg/dL (0.1-1.0); Bun/Creatinine Ratio 16.5 (12.0-20.0); Calcium, Blood 8.5 mg/dL (8.5-10.1); Creatinine, Blood 0.85 mg/dL (0.40-1.00); Globulin, Blood 3.6 g/dL (2.2-4.0); Potassium, Blood 4.4 mmol/L (3.5-5.5); Total Protein, Blood 6.8 g/dL (6.4-8.2)
[2024-10-25 14:46] LABS: BASOPHILS ABSOLUTE AUTO 0.05 K/mm3 (0.00-0.23); BASOPHILS PERCENT AUTO 1 % (0-2); EOSINOPHILS ABSOLUTE AUTO 0.06 K/mm3 (0.00-0.68); EOSINOPHILS PERCENT AUTO 1 % (0-6); Hematocrit 34.8 % (33.0-51.0); Hemoglobin 11.1 g/dL (11.5-16.0); IMMATURE GRAN PERCENT AUTO 0 % (0-1); LYMPHOCYTES ABSOLUTE AUTO 1.14 K/mm3 (0.84-5.20); LYMPHOCYTES PERCENT AUTO 21 % (21-46); MONOCYTES PERCENT AUTO 9 % (4-13); Mean Corpuscular HGB 25.3 pg (26.0-34.0); Mean Corpuscular HGB Conc 31.9 g/dL (31.5-36.5); Mean Corpuscular Volume 80 fL (80-100); Mean Platelet Volume 9.8 fL (9.1-12.4); NEUTROPHILS PERCENT AUTO 67 % (41-73); Platelet Count 230 K/mm3 (150-400); RDW Coefficient Variation 16.2 % (11.7-14.2); RDW Standard Deviation 46.9 fL (35.1-46.3); Red Blood Cell Count 4.38 M/mm3 (3.80-5.20); White Blood Cell Count 5.35 K/mm3 (4.00-11.30)
== END 2024-10-25 15:20 | disposition left against medical advice (07) ==
LOC: ER 13:22
PROVIDERS: Student in an Organized Health Care Education/Training Program
DX: R07.89 Other chest pain (principal); Z88.5 Allergy status to narcotic agent; Z88.8 Allergy status to other drugs, medicaments and biological substances; Z79.899 Other long term (current) drug therapy; G40.909 Epilepsy, unspecified, not intractable, without status epilepticus
CPT/HCPCS: 71046; 80053; 84484; 85025; 93005; 93010; 99284-25

== ENCOUNTER 2024-10-30 15:47 | Emergency (ER) | payer MEDICARE, OTHER ==
[~2024-10-30] VITALS: Ht 167.6 cm; Wt 117.9 kg
[2024-10-30 15:57] VITALS: BP 156/85
[2024-10-30 16:35] LABS: BASOPHILS ABSOLUTE AUTO 0.06 K/mm3 (0.00-0.23); BASOPHILS PERCENT AUTO 1 % (0-2); EOSINOPHILS ABSOLUTE AUTO 0.09 K/mm3 (0.00-0.68); EOSINOPHILS PERCENT AUTO 2 % (0-6); Hemoglobin 11.2 g/dL (11.5-16.0); IMMATURE GRAN ABSOLUTE AUTO 0.01 K/mm3 (0.00-0.10); IMMATURE GRAN PERCENT AUTO 0 % (0-1); LYMPHOCYTES ABSOLUTE AUTO 1.49 K/mm3 (0.84-5.20); LYMPHOCYTES PERCENT AUTO 28 % (21-46); MONOCYTES ABSOLUTE AUTO 0.46 K/mm3 (0.16-1.47); MONOCYTES PERCENT AUTO 9 % (4-13); Mean Corpuscular HGB 25.1 pg (26.0-34.0); Mean Corpuscular Volume 79 fL (80-100); Mean Platelet Volume 9.6 fL (9.1-12.4); NEUTROPHILS ABSOLUTE AUTO 3.29 K/mm3 (1.96-9.15); NEUTROPHILS PERCENT AUTO 61 % (41-73); Platelet Count 260 K/mm3 (150-400); RDW Coefficient Variation 15.9 % (11.7-14.2); RDW Standard Deviation 45.4 fL (35.1-46.3); Red Blood Cell Count 4.46 M/mm3 (3.80-5.20)
[2024-10-30 16:58] LABS: Albumin, Blood 3.6 g/dL (3.4-5.0); Albumin/Globulin Ratio 0.9 (0.8-1.8); Bilirubin, Total 0.6 mg/dL (0.1-1.0); Bun/Creatinine Ratio 22.5 (12.0-20.0); Calcium, Blood 8.4 mg/dL (8.5-10.1); Creatinine, Blood 0.98 mg/dL (0.40-1.00); Globulin, Blood 3.9 g/dL (2.2-4.0); Total Protein, Blood 7.5 g/dL (6.4-8.2)
== END 2024-10-30 20:05 | disposition home or self-care (01) ==
LOC: ER 15:47
PROVIDERS: Physician Assistant
DX: R07.9 Chest pain, unspecified (principal); R06.02 Shortness of breath; Z53.21 Procedure and treatment not carried out due to patient leaving prior to being seen by health care provider
CPT/HCPCS: 71046; 80053; 84484; 85025; 93005; 93010

== ENCOUNTER 2025-01-16 15:54 | Emergency (ER) | payer MEDICARE, OTHER ==
[~2025-01-16] VITALS: Ht 172.7 cm; Wt 81.7 kg
[2025-01-16 16:09] VITALS: BP 163/107
[2025-01-16 17:27] LABS: BASOPHILS ABSOLUTE AUTO 0.06 K/mm3 (0.00-0.23); BASOPHILS PERCENT AUTO 1 % (0-2); EOSINOPHILS ABSOLUTE AUTO 0.07 K/mm3 (0.00-0.68); EOSINOPHILS PERCENT AUTO 2 % (0-6); Hematocrit 36.9 % (33.0-51.0); Hemoglobin 11.3 g/dL (11.5-16.0); IMMATURE GRAN ABSOLUTE AUTO 0.01 K/mm3 (0.00-0.10); IMMATURE GRAN PERCENT AUTO 0 % (0-1); LYMPHOCYTES ABSOLUTE AUTO 1.11 K/mm3 (0.84-5.20); LYMPHOCYTES PERCENT AUTO 23 % (21-46); MONOCYTES ABSOLUTE AUTO 0.41 K/mm3 (0.16-1.47); MONOCYTES PERCENT AUTO 9 % (4-13); Mean Corpuscular HGB Conc 30.6 g/dL (31.5-36.5); Mean Corpuscular Volume 81 fL (80-100); NEUTROPHILS ABSOLUTE AUTO 3.09 K/mm3 (1.96-9.15); NEUTROPHILS PERCENT AUTO 65 % (41-73); NRBC ABSOLUTE 0.00 K/mm3 (0.00-0.02); NRBC Auto 0.0 /100 WBC (0.0-0.2); Platelet Count 232 K/mm3 (150-400); RDW Coefficient Variation 13.7 % (11.7-14.2); RDW Standard Deviation 39.8 fL (35.1-46.3)
[2025-01-16 17:52] LABS: Alanine Aminotransfer (ALT/SGP 22.0 U/L (12-78); Albumin, Blood 3.6 g/dL (3.4-5.0); Albumin/Globulin Ratio 0.9 (0.8-1.8); Anion Gap 9.0 mmol/L (3-11); Aspartate Aminotrans (AST/SGOT 24.0 U/L (12-37); Bilirubin, Total 0.4 mg/dL (0.1-1.0); Blood Urea Nitrogen 14.0 mg/dL (8-24); CO2, Blood 23.0 mmol/L (21-32); Calcium, Blood 8.3 mg/dL (8.5-10.1); Chloride, Blood 108.0 mmol/L (98-108); Creatinine, Blood 0.86 mg/dL (0.40-1.00); Globulin, Blood 3.9 g/dL (2.2-4.0); Glucose, Blood 99.0 mg/dL (70-99); Potassium, Blood 4.0 mmol/L (3.5-5.5); Sodium, Blood 136.0 mmol/L (136-145); Total Protein, Blood 7.5 g/dL (6.4-8.2)
== END 2025-01-16 19:21 | disposition left against medical advice (07) ==
LOC: ER 15:54
PROVIDERS: Student in an Organized Health Care Education/Training Program
DX: R07.89 Other chest pain (principal); R06.02 Shortness of breath; Z53.21 Procedure and treatment not carried out due to patient leaving prior to being seen by health care provider
CPT/HCPCS: 71046; 80053; 84484; 85025; 93005; 93010; 99282-25

== ENCOUNTER 2025-03-29 01:35 | Emergency (ER) | payer MEDICARE, OTHER ==
[~2025-03-29] VITALS: Ht 172.7 cm; Wt 112.0 kg
[2025-03-29 02:51] LABS: BASOPHILS ABSOLUTE AUTO 0.05 K/mm3 (0.00-0.23); BASOPHILS PERCENT AUTO 1 % (0-2); EOSINOPHILS ABSOLUTE AUTO 0.05 K/mm3 (0.00-0.68); EOSINOPHILS PERCENT AUTO 1 % (0-6); Hematocrit 35.0 % (33.0-51.0); Hemoglobin 11.3 g/dL (11.5-16.0); IMMATURE GRAN ABSOLUTE AUTO 0.01 K/mm3 (0.00-0.10); IMMATURE GRAN PERCENT AUTO 0 % (0-1); LYMPHOCYTES ABSOLUTE AUTO 1.12 K/mm3 (0.84-5.20); LYMPHOCYTES PERCENT AUTO 19 % (21-46); MONOCYTES ABSOLUTE AUTO 0.40 K/mm3 (0.16-1.47); MONOCYTES PERCENT AUTO 7 % (4-13); Mean Corpuscular HGB Conc 32.3 g/dL (31.5-36.5); Mean Corpuscular Volume 77 fL (80-100); NEUTROPHILS ABSOLUTE AUTO 4.20 K/mm3 (1.96-9.15); NEUTROPHILS PERCENT AUTO 72 % (41-73); NRBC ABSOLUTE 0.00 K/mm3 (0.00-0.02); NRBC Auto 0.0 /100 WBC (0.0-0.2); Platelet Count 205 K/mm3 (150-400); RDW Coefficient Variation 15.0 % (11.7-14.2); RDW Standard Deviation 41.3 fL (35.1-46.3)
[2025-03-29 03:16] LABS: Alanine Aminotransfer (ALT/SGP 22.0 U/L (12-78); Albumin, Blood 3.6 g/dL (3.4-5.0); Albumin/Globulin Ratio 1.0 (0.8-1.8); Anion Gap 9.0 mmol/L (3-11); Aspartate Aminotrans (AST/SGOT 22.0 U/L (12-37); Bilirubin, Total 0.5 mg/dL (0.1-1.0); Blood Urea Nitrogen 16.0 mg/dL (8-24); CO2, Blood 25.0 mmol/L (21-32); Calcium, Blood 8.6 mg/dL (8.5-10.1); Chloride, Blood 106.0 mmol/L (98-108); Creatinine, Blood 0.83 mg/dL (0.40-1.00); Globulin, Blood 3.7 g/dL (2.2-4.0); Glucose, Blood 118.0 mg/dL (70-99); Magnesium, Blood 2.2 mg/dL (1.6-2.4); Potassium, Blood 3.9 mmol/L (3.5-5.5); Sodium, Blood 136.0 mmol/L (136-145); Total Protein, Blood 7.3 g/dL (6.4-8.2)
[2025-03-29 03:38] VITALS: BP 158/108
== END 2025-03-29 03:39 | disposition home or self-care (01) ==
LOC: ER 01:35
PROVIDERS: Student in an Organized Health Care Education/Training Program
DX: R07.89 Other chest pain (principal); R00.2 Palpitations; Z86.73 Personal history of transient ischemic attack (TIA), and cerebral infarction without residual deficits; Z79.899 Other long term (current) drug therapy; Z88.5 Allergy status to narcotic agent; Z88.8 Allergy status to other drugs, medicaments and biological substances
CPT/HCPCS: 71045; 80053; 83735; 84484; 85025; 93005; 93010; 99285-25